=== PATIENT | male | born 1955 | race Caucasian/White ===

== ENCOUNTER 2017-07-21 08:29 | Outpatient (CLI) | payer OTHER | END 2017-07-21 08:38 | disposition home or self-care (01) | LOC: NUCLEAR 08:29 | DX: I11.9 Hypertensive heart disease without heart failure (principal); R53.83 Other fatigue; R94.31 Abnormal electrocardiogram [ECG] [EKG]; R07.89 Other chest pain | CPT/HCPCS: 93306; 78452; 93017; A9500 ==

== ENCOUNTER 2017-10-02 08:37 | Outpatient (CLI) | payer OTHER | END 2017-10-02 09:00 | disposition home or self-care (01) | LOC: NUCLEAR 08:37 | DX: I11.9 Hypertensive heart disease without heart failure (principal); I49.3 Ventricular premature depolarization; I44.0 Atrioventricular block, first degree; R00.2 Palpitations ==